=== PATIENT | female | born 1980 | race Caucasian/White ===

== ENCOUNTER 2017-03-29 16:21 | Emergency (ER) | payer MEDICAID, OTHER ==
[2017-03-29 16:37] VITALS: RESP 20
[2017-03-29] MEDS ORDERED: TDAP VACCINE 0.5 ML SUS IM ONE ×2 (17:01→17:12)
[2017-03-29] MEDS ORDERED: LIDOCAINE BUFFERED 1% 50 ML SOL SC ONE (17:17)
[2017-03-29] MEDS ORDERED: BACITRACIN 500 U/GM OIN TOP ONE ×2 (17:17→17:19)
[2017-03-29] MEDS ORDERED: LIDOCAINE HCL 1% MDV SOL SC ONE (17:20)
[2017-03-29] MEDS ORDERED: LIDOCAINE HCL 1% MPF SOL ONE (17:20)
[2017-03-29 17:57] VITALS: BP 124/93; PULSE 105; O2SAT 99
[2017-03-29 17:58] VITALS: TEMP 97.4
== END 2017-03-29 17:47 | disposition home or self-care (01) | DRG 605 ==
LOC: ED 16:21
DX: S01.81XA Laceration without foreign body of other part of head, initial encounter (principal); M43.6 Torticollis; W00.0XXA Fall on same level due to ice and snow, initial encounter
CPT/HCPCS: 12001; 72040; 90471; 90715; 99285; L0130; A9270-GY; J2001

== ENCOUNTER 2017-10-01 11:59 | Emergency (ER) | payer SELFPAY ==
[2017-10-01 12:05] VITALS: RESP 23; TEMP 99.3
[2017-10-01 12:41] VITALS: BP 128/86; PULSE 77; O2SAT 100
== END 2017-10-01 13:09 | disposition home or self-care (01) | DRG 605 ==
LOC: ED 11:59
DX: S90.31XA Contusion of right foot, initial encounter (principal); S50.312A Abrasion of left elbow, initial encounter; S91.114A Laceration without foreign body of right lesser toe(s) without damage to nail, initial encounter
CPT/HCPCS: 73630; 99283

== ENCOUNTER 2018-10-28 19:24 | Emergency (ER) | payer SELFPAY | END 2018-10-28 22:11 | disposition short-term general hospital (02) | LOC: ED 19:24 ==